=== PATIENT | female | born 1980 | race Hispanic/Latino ===

== ENCOUNTER 2022-12-09 09:19 | Emergency (ER) | payer OTHER ==
--- NOTE | 2022-12-09 10:20 | RAD REPORT ---
EXAM DESCRIPTION: US - Abdomen Exam Limited - 12/09/2022 10:08 am CLINICAL HISTORY: ABD PAIN COMPARISON: No comparisons FINDINGS: The gallbladder demonstrates prominent 17 mm shadowing stone in the gallbladder neck regio n. No pericholecystic fluid or gallbladder wall thickening. The common bile duct is normal measuring 6 mm.. The liver demonstrates no findings of intrahepatic biliary dilatation. IMPRESSION: Cholelithiasis.
[2022-12-09] MEDS ORDERED: DICYCLOMINE HCL 10 MG CAP ONE (11:48)
[2022-12-09] MEDS ORDERED: PROMETHAZINE 25 MG TABLET ONE (11:48)
[2022-12-09] MEDS ORDERED: CEPHALEXIN 250 MG CAP ONE (11:49)
--- NOTE | 2022-12-09 12:47 | EDPHYS ---
Physician Documentation [facility] Name: Joie Duncan Age: 42 yrs Sex: Female : 1980 Arrival Date: 12/09/2022 Time: 09:19 Bed 2 Private MD: ED Physician Esau Davis HPI: 12/09 10:33 This 42 yrs old Female presents to ER via Ambulatory with complaints of snw Abdominal Pain - Several Hours. 10:33 The patient presents with abdominal pain in the right upper quadrant. Onset: The snw symptoms/episode began/occurred acutely. It is unknown whether or not the patient has recently seen a physician. Historical: - Allergies: 09:48 No Known Allergies; bp - Home Meds: 09:48 olmesartan-hydrochlorothiazide 40-25 mg oral tablet daily [Active]; bp - PMHx: 09:48 Hypertensive disorder; bp - Immunization history:: Adult Immunizations up to date. - Social history:: Smoking status: Patient denies any tobacco usage or history of. ROS: 10:34 Constitutional: Negative for fever, chills, and weight loss, Eyes: Negative for injury, snw pain, redness, and discharge, ENT: Negative for injury, pain, and discharge, Neck: Negative for injury, pain, and swelling, Cardiovascular: Negative for chest pain, palpitations, and edema, Respiratory: Negative for shortness of breath, cough, wheezing, and pleuritic chest pain, Back: Negative for injury and pain, : Negative for injury, bleeding, discharge, and swelling, MS/Extremity: Negative for injury and deformity, Skin: Negative for injury, rash, and discoloration, Neuro: Negative for headache, weakness, numbness, tingling, and seizure, Psych: Negative for depression, anxiety, suicide ideation, homicidal ideation, and hallucinations. 10:34 Abdomen/GI: Positive for abdominal pain, nausea, vomiting, of the right upper quadrant. Exam: 12:49 Constitutional: This is a well developed, well nourished patient who is awake, alert, snw and in no acute distress. Head/Face: Normocephalic, atraumatic. Eyes: Pupils equal round and reactive to light, extra-ocular motions intact. Lids and lashes normal. Conjunctiva and sclera are non-icteric and not injected. Cornea within normal limits. Periorbital areas with no swelling, redness, or edema. ENT: Nares patent. No nasal discharge, no septal abnormalities noted. Tympanic membranes are normal and external auditory canals are clear. Oropharynx with no redness, swelling, or masses, exudates, or evidence of obstruction, uvula midline. Mucous membranes moist. Neck: Trachea midline, no thyromegaly or masses palpated, and no cervical lymphadenopathy. Supple, full range of motion without nuchal rigidity, or vertebral point tenderness. No Meningismus. Chest/axilla: Normal chest wall appearance and motion. Nontender with no deformity. No lesions are appreciated. Cardiovascular: Regular rate and rhythm with a normal S1 and S2. No gallops, murmurs, or rubs. Normal PMI, no JVD. No pulse deficits. Respiratory: Lungs have equal breath sounds bilaterally, clear to auscultation and percussion. No rales, rhonchi or wheezes noted. No increased work of breathing, no retractions or nasal flaring. Back: No spinal tenderness. No costovertebral tenderness. Full range of motion. Skin: Warm, dry with normal turgor. Normal color with no rashes, no lesions, and no evidence of cellulitis. MS/ Extremity: Pulses equal, no cyanosis. Neurovascular intact. Full, normal range of motion. Neuro: Awake and alert, GCS 15, oriented to person, place, time, and situation. Cranial nerves II-XII grossly intact. Motor strength 5/5 in all extremities. Sensory grossly intact. Cerebellar exam normal. Normal gait. Psych: Awake, alert, with orientation to person, place and time. Behavior, mood, and affect are within normal limits. 12:49 Abdomen/GI: Inspection: obese Bowel sounds: normal, in all quadrants, Palpation: mild abdominal tenderness, in the right upper quadrant. Vital Signs: 09:47 BP 156 / 89; Pulse 93; Resp 16; Temp 98; Pulse Ox 99% ; bp 13:08 BP 142 / 76; Pulse 84; Resp 16; Pulse Ox 99% ; ko1 MDM: 09:58 Patient medically screened. snw 12:45 ED course: Pt states she feels "way better". snw 12:48 Differential diagnosis: cholecystitis, Cholelithiasis, gastritis, pancreatitis. Data snw reviewed: vital signs, nurses notes, radiologic studies. Response to treatment: the patient's symptoms have markedly improved after treatment. 12/09 09:54 Order name: US Abdomen Limited; Complete Time: 10:32 snw Administered Medications: 11:45 Drug: Promethazine PO 25 mg Route: PO; ko1 11:46 Drug: Dicyclomine PO 20 mg Route: PO; ko1 11:46 Drug: Cephalexin PO 500 mg Route: PO; ko1 Disposition Summary: 12/09/22 12:47 Discharge Ordered Location: Home snw Condition: Stable snw Diagnosis - Other cholelithiasis without obstruction snw Followup: snw - With: Emergency Department - When: As needed - Reason: Worsening of condition Followup: snw - With: Yang Cartagena MD - When: 1 week - Reason: Recheck today's complaints, Continuance of care, Re-evaluation by your physician Discharge Instructions: - Discharge Summary Sheet snw - Cholelithiasis snw - Gallbladder Eating Plan snw Forms: - Medication Reconciliation Form snw - Thank You Letter snw - Antibiotic Education snw - Prescription Opioid Use snw - Patient Portal Instructions snw Prescriptions: - Cephalexin 500 mg Oral Capsule - take 1 capsule by ORAL route every 8 hours for 10 days; 30 capsule; Refills: 0, snw Product Selection Permitted - promethazine 25 mg Oral Tablet - take 1 tablet by ORAL route every 6 hours As needed; 20 tablet; Refills: 0, snw Product Selection Permitted - dicyclomine 20 mg Oral Tablet - take 1 tablet by ORAL route 4 times per day; 24 tablet; Refills: 0, Product snw Selection Permitted Signatures: Dispatcher [employer] Gauri Chapa, CONGRESSIONAL ASSISTANT-C CONGRESSIONAL ASSISTANT-Csnw Brad Richardson, RN RN Brenda Chen, RN RN ko1
--- NOTE | 2022-12-09 12:47 | ER ---
Nurse's Notes [facility] Name: Joie Duncan Age: 42 yrs Sex: Female : 1980 Arrival Date: 12/09/2022 Time: 09:19 Bed 2 Private MD: Diagnosis: Other cholelithiasis without obstruction Presentation: 12/09 09:47 Chief complaint: Patient states: RUQ PAIN WITH NAUSEA/VOMITING SINCE 0330. Coronavirus bp screen: At this time, the client does not indicate any symptoms associated with coronavirus-19. Ebola Screen: No symptoms or risks identified at this time. Initial Sepsis Screen: Does the patient meet any 2 criteria? No. Patient's initial sepsis screen is negative. Does the patient have a suspected source of infection? No. Patient's initial sepsis screen is negative. Risk Assessment: Do you want to hurt yourself or someone else? Patient reports no desire to harm self or others. Onset of symptoms was December 09, 2022 at 03:30. 09:47 Method Of Arrival: Ambulatory bp 09:47 Acuity: ELISE 3 bp Triage Assessment: 09:48 General: Appears uncomfortable, obese, Behavior is calm, cooperative, appropriate for bp age. Pain: Complains of pain in right upper quadrant. GI: Reports upper abdominal pain, nausea, vomiting. Historical: - Allergies: 09:48 No Known Allergies; bp - Home Meds: 09:48 olmesartan-hydrochlorothiazide 40-25 mg oral tablet daily [Active]; bp - PMHx: 09:48 Hypertensive disorder; bp - Immunization history:: Adult Immunizations up to date. - Social history:: Smoking status: Patient denies any tobacco usage or history of. Screenin:45 [facility] ED Fall Risk Assessment (Adult) History of falling in the last 3 months, ko1 including since admission No falls in past 3 months (0 pts) Confusion or Disorientation No (0 pts) Intoxicated or Sedated No (0 pts) Impaired Gait No (0 pts) Mobility Assist Device Used No (0 pt) Altered Elimination No (0 pt) Score/Fall Risk Level 0 - 2 = Low Risk Oriented to surroundings, Maintained a safe environment, Educated pt \T\ family on fall prevention, incl call for assistance when getting out of bed, Assessed \T\ reinforced patient's understanding of fall precautions, Provided non-skid footwear, Hourly rounding (assess needs \T\ fall precautionary measures) done, Used ambulatory aids as needed (educated on \T\ assisted with). Abuse screen: Denies threats or abuse. Denies injuries from another. Nutritional screening: No deficits noted. Tuberculosis screening: No symptoms or risk factors identified. Assessment: 11:45 Neuro: No deficits noted. Cardiovascular: No deficits noted. Respiratory: No deficits ko1 noted. GI: Bowel sounds present X 4 quads. Abd is soft and non tender X 4 quads. GI: Reports lower abdominal pain, nausea, vomiting, since 0300. : No deficits noted. EENT: No deficits noted. Derm: No deficits noted. Musculoskeletal: No deficits noted. Vital Signs: 09:47 BP 156 / 89; Pulse 93; Resp 16; Temp 98; Pulse Ox 99% ; bp 13:08 BP 142 / 76; Pulse 84; Resp 16; Pulse Ox 99% ; ko1 ED Course: 09:21 Patient arrived in ED. mg5 09:40 Gauri Alejandre FNP-C is PHCP. snw 09:41 Esau Davis MD is Attending Physician. snw 09:48 Triage completed. bp 09:49 Arm band placed on. bp 10:10 US Abdomen Limited In Process Unspecified. EDMS 11:36 Brenda Ogden, NANCY is Primary Nurse. ko1 11:45 Patient has correct armband on for positive identification. Bed in low position. Call ko1 light in reach. Provided Education on: NA. Pulse ox on. NIBP on. Door closed. Noise minimized. Warm blanket given. 12:46 Yang Cartgaena MD is Referral Physician. snw 13:08 No provider procedures requiring assistance completed. Patient did not have IV access ko1 during this emergency room visit. Administered Medications: 11:45 Drug: Promethazine PO 25 mg Route: PO; ko1 11:46 Drug: Dicyclomine PO 20 mg Route: PO; ko1 11:46 Drug: Cephalexin PO 500 mg Route: PO; ko1 Medication: 11:45 VIS not applicable for this client. ko1 Outcome: 12:47 Discharge ordered by . snw 13:08 Discharged to home ambulatory, with family. ko1 13:08 Condition: good 13:08 Discharge instructions given to patient, family, Instructed on discharge instructions, follow up and referral plans. medication usage, Demonstrated understanding of instructions, follow-up care, medications, Prescriptions given X 3. 13:12 Patient left the ED. ko1 Signatures: Dispatcher [employer] EDMS Gauri Alejandre, DIGESTION OPERATOR-C DIGESTION OPERATOR-Csnw Brad Richardson, RN RN Brenda Chen RN RN ko1 Delia Mitchell mg5
[2022-12-09 13:16] VITALS: TEMP 98; O2SAT 99
[2022-12-09 13:18] VITALS: BP 142/76
== END 2022-12-09 13:12 | disposition home or self-care (01) ==
LOC: ER 09:19
DX: K80.80 Other cholelithiasis without obstruction (principal); I10 Essential (primary) hypertension
CPT/HCPCS: 76705; 99283; Q0169